=== PATIENT | female | born 1970 | race Caucasian/White ===

== ENCOUNTER 2021-05-20 20:50 | Emergency (ER) | payer BC ==
[~2021-05-20] VITALS: Ht 160 cm; Wt 106.6 kg
[~2021-05-20 20:50] MED LIST: NORCO 5-325 TA1 EACH PO
[2021-05-20] MEDS ORDERED: CEPHALEXIN500 MG PO (21:14)
[2021-05-20] MEDS ORDERED: MEDROLDOSEPACK PO (21:14)
[2021-05-20 21:22] VITALS: BP 153/92
== END 2021-05-20 21:23 | disposition home or self-care (01) ==
LOC: M.ERS 20:50
DX: L30.9 Dermatitis, unspecified (principal); I10 Essential (primary) hypertension